=== PATIENT | female | born 1995 | race Two or more races ===

== ENCOUNTER 2016-10-22 12:23 | Emergency (ER) ==
[2016-10-22 12:33] VITALS: BP 113/74; TEMP 96; BMI 39.1
--- NOTE | 2016-10-22 12:45 | ED.PDOC ---
General ED Provider: Dr. TSERING MORGAN Chief Complaint: Rash Stated Complaint: rash chest Time Seen by Physician: 12:23 Mode of Arrival: Walk-In Information Source: Patient Exam Limitations: No limitations Primary Care Provider: RALEIGH MUÑIZ Nursing and Triage Documentation Reviewed and Agree: Yes Skin Complaint Exam - Skin Rash/Itching Complaint/Exam Onset/Duration: 1 day Symptoms Are: Still present Initial Severity: Moderate Current Severity: Moderate Potential Exposures: Reports: Plants Aggravating: Reports: None Alleviating: Reports: None Associated Signs and Symptoms: Denies: Difficulty breathing, Fever, Chills Skin Findings: Present: Maculae, Papules, Vesicles Differential Diagnoses: Allergic Reaction, Contact Dermatitis, Poison [place] Review of Systems - Review Of Systems Constitutional: Reports: No symptoms Eyes: Reports: No symptoms Ears, Nose, Mouth, Throat: Reports: No symptoms Respiratory: Reports: No symptoms Cardiac: Reports: No symptoms GI: Reports: No symptoms : Reports: No symptoms Musculoskeletal: Reports: No symptoms Skin: Reports: Rash Neurological: Reports: No symptoms Endocrine: Reports: No symptoms Hematologic/Lymphatic: Reports: No symptoms All Other Systems: Reviewed and Negative Past Medical History - Past Medical History Previously Healthy: Yes Endocrine: Reports: None Cardiovascular: Reports: None Respiratory: Reports: None Hematological: Reports: None Gastrointestinal: Reports: None Genitourinary: Reports: None Neuro/Psych: Reports: None Musculoskeletal: Reports: None Cancer: Reports: None Last Menstrual Period: 10/01/16 - Surgical History General Surgical History: Reports: None - Family History Family History: Reports: None - Social History Smoking Status: Never smoker Hx Substance Use: No Alcohol Screening: None - Immunizations Tetanus Shot up to Date: Yes Physical Exam - Physical Exam Appearance: Well-appearing, No pain distress, Well-nourished Eyes: JEFFREY, EOMI, Conjunctiva clear ENT: Ears normal, Nose normal, Oropharynx normal Respiratory: Airway patent, Breath sounds clear, Breath sounds equal, Respirations nonlabored Cardiovascular: RRR, Pulses normal, No rub, No murmur GI/: Soft, Nontender, No masses, Bowel sounds normal, No Organomegaly Musculoskeletal: Normal strength, ROM intact, No edema, No calf tenderness Skin: Warm, Dry (rash chest maculopapular) Neurological: Sensation intact, Motor intact, Reflexes intact, Cranial nerves intact, Alert, Oriented Psychiatric: Affect appropriate, Mood appropriate Critical Care Note - Critical Care Note Total Time (mins): 0 Course - Course Vital Signs: Temp Pulse Resp BP Pulse Ox 10/22/16 12:23 96 F L 97 H 20 113/74 96 Departure - Departure Time of Disposition: 12:44 Disposition: HOME SELF-CARE Discharge Problem: Pruritic rash, Contact dermatitis due to poison avani Instructions: Poison Avani (ED) Condition: Good Pt referred to PMD for follow-up: No Allergies/Adverse Reactions: Allergies No Known Allergies Allergy (Verified 10/22/16 12:30) Home Medications: Ambulatory Orders 1 [No Reported Medications] 10/22/16
== END 2016-10-22 12:52 | disposition home or self-care (01) ==
LOC: ED 12:23
DX: L23.7 Allergic contact dermatitis due to plants, except food (principal)
CPT/HCPCS: 99282